=== PATIENT | female | born 1975 | race Caucasian/White ===

== ENCOUNTER 2019-06-01 16:41 | Emergency (ER) | payer OTHER ==
[~2019-06-01] VITALS: Ht 170.2 cm; Wt 98.4 kg
[2019-06-01 16:43] VITALS: BP 120/82
--- NOTE | 2019-06-01 18:18 | NUR ---
Patient/Caregiver given discharge instructions and they have confirmed that they understand the instructions. Patient ambulatory with steady gait.
== END 2019-06-01 18:20 | disposition home or self-care (01) ==
LOC: ED 18:15
DX: M79.672 Pain in left foot (principal)
CPT/HCPCS: 99283

== ENCOUNTER 2020-02-16 08:51 | Emergency (ER) | payer OTHER ==
[~2020-02-16] VITALS: Ht 170.2 cm; Wt 103.7 kg
--- NOTE | 2020-02-16 09:11 | NUR ---
PT CAME IN CO OF HEADACE, DRY COUGH AND SORE THROAT. SAYS "I HAD A FEVER. 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 PT IS 96% ON ROOM AIR.
[2020-02-16] MEDS ORDERED: DEXAMETHASONE 4 MG/ML, 1ML ONE (09:23)
[2020-02-16 09:25] VITALS: BP 110/89
--- NOTE | 2020-02-16 09:26 | NUR ---
PT MEDICATED PER MAR
[2020-02-16] MEDS ORDERED: DEXAMETHASONE 4 MG/ML, 1ML PO ONE (09:30)
== END 2020-02-16 10:29 | disposition home or self-care (01) ==
LOC: ED 09:17
DX: B34.9 Viral infection, unspecified (principal)
CPT/HCPCS: 71045; 87081; 87880; 93005; 99285; J1100